=== PATIENT | male | born 1985 | race Two or more races ===

== ENCOUNTER 2024-10-16 20:47 | Emergency (ER) | payer BC, OTHER ==
[~2024-10-16] VITALS: Ht 180.3 cm; Wt 93.1 kg
[2024-10-16 20:53] VITALS: TEMP 98
[2024-10-16] MEDS: methylPREDNISolone SOD SUCC 125 MG/2 ML VL IV ONE (21:07)
[2024-10-16] MEDS: diphenhdrAMINE HCL 50 MG/1 ML VL IV ONE (21:07)
[2024-10-16] MEDS: FAMOTIDINE (10MG/ML) 2ML VL IV ONE (21:07)
[2024-10-16 21:15] VITALS: PULSE 78; RESP 25; O2SAT 97
--- NOTE | 2024-10-16 21:25 | ED.PDOC ---
HPI Allergic reaction HPI Comments 39 y/o M, presents to the ED for CC of allergic reaction. Patient states, that he was at the gym when he began to experience hives and redness. Patient relays, he began to experience an allergic reaction 20 minutes [employer] with symptoms of hyperventilation, generalized body hives, and itchiness. Upon arrival to ED, kareem aguero appeared in significant distressed and visually diaphoretic; patient had syncopal episode as a result. No other symptoms or modifying factors present at this time. Chief Complaint: Allergic Reaction Time Seen by MD: 21:10 Primary Care Provider: elisha bowman Reviewed Notes: Nurses Notes, Medications, Allergies Allergies: Coded Allergies: NO KNOWN ALLERGIES (Unverified , 10/16/24) Information Source: Patient Mode of Arrival: Ambulatory Severity: Moderate Rash: Moderate SOB: Moderate Difficulty swallowing: None Timing: Minutes Duration: Since onset Prehospital treatment: None Exposed to: Unknown Developed: Rash, Shortness of Breath History of: None Modyifying Factors: None Associated Sign and Symptoms: None Past Medical History PAST MEDICAL HISTORY: Denies Surgical History: Denies all surgeries Family History Family History: Unknown Social History Smoker: Non-Smoker Alcohol: Denies ETOH Use Drugs: Denies Drug Use Lives In: Home Constitutional: denies: chills, diaphoresis, fatigue, fever, malaise, sweats, weakness, others EENTM: denies: blurred vision, double vision, ear bleeding, ear discharge, ear drainage, ear pain, ear ringing, eye pain, eye redness, hearing loss, mouth pain, mouth swelling, nasal discharge, nose bleeding, nose congestion, nose pain, photophobia, tearing, throat pain, throat swelling, voice changes, others Respiratory: denies: cough, hemoptysis, orthopnea, SOB at rest, shortness of breath, SOB with excertion, stridor, wheezing, others Cardiovascular: denies: chest pain, dizzy spells, diaphoresis, Dyspnea on exertion, edema, irregular heart beat, left arm pain, lightheadedness, palpitations, PND, syncope, others Gastrointestinal: denies: abdomen distended, abdominal pain, blood streaked bowels, constipated, diarrhea, dysphagia, difficulty swallowing, hematemesis, melena, nausea, poor appetite, poor fluid intake, rectal bleeding, rectal pain, vomiting, others Genitourinary: denies: burning, dysuria, flank pain, frequency, hematuria, incontinence, penile discharge, penile sore, pain, testicle pain, testicle swelling, urgency, others Neurological: denies: dizziness, fainting, headache, left sided numbness, left sided weakness, numbness, paresthesia, pre-existing deficit, right sided numbness, right sided weakness, seizure, speech problems, tingling, tremors, weakness, others Musculoskeletal: denies: back pain, gout, joint pain, joint swelling, muscle pain, muscle stiffness, neck pain, others Integumetry: reports: change in color, rash, others (hives); denies: bruises, change in hair/nails, dryness, laceration, lesions, lumps, wounds Allergic/Immunocompromised: denies: Difficulty Healing, Frequent Infections, Hives, Itching, others Hematologic/Lymphatic: denies: anemia, blood clots, easy bleeding, easy bruising, swollen glands, others Endocrine: reports: excessive sweating; denies: excessive hunger, excessive thirst, excessive urination, flushing, intolerance to cold, intolerance to heat, unexplained weight gain, unexplained weight loss, others Psychiatric: denies: anxiety, bipolar disorder, depression, hopeless, panic disorder, schizophrenia, sleepless, suicidal, others All Other Systems: Reviewed and Negative Physical Exam General Appearance: No Apparent Distress, Normal HEENT: Normal ENT Inspection, Pharynx Normal, TMs Normal Neck: Full Range of Motion, Non-Tender, Normal, Normal Inspection Respiratory: Chest Non-Tender, Lungs Clear, No Accessory Muscle Use, No Respiratory Distress, Normal Breath Sounds Cardiovascular: No Edema, No JVD, No Murmur, No Gallop, Normal Peripheral Pulses, Regular Rate/Rhythm Breast Exam: Deferred Gastrointestinal: No Organomegaly, Non Tender, No Pulsatile Mass, Normal Bowel Sounds, Soft Genitalia: Deferred Pelvic: Deferred Rectal: Deferred Extremities: No calf tenderness, Normal capillary refill, Normal inspection, Normal range of motion, Non-tender, No pedal edema Musculoskeletal : Apperance: Normal 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 Was a procedure done?: No Differential diagnosis (all) Differential Diagnosis: Anaphylaxis, Bronchospasm, Drug Reaction, Shock X-Ray, Labs, Meds, VS Vital Signs Date Time Temp Pulse Resp B/P (MAP) Pulse Ox O2 Delivery O2 Flow Rate FiO2 10/16/24 22:00 78 16 135/90 (105) 97 10/16/24 21:15 78 25 97 Nasal Cannula* 4 36 10/16/24 21:15 78 25 97 Nasal Cannula* 4 36 10/16/24 21:14 78 25 146/92 (110) 97 10/16/24 21:14 78 25 146/92 (110) 97 10/16/24 21:07 73 22 126/90 (102) 94 10/16/24 20:53 20 96 Room Air* 0 21 10/16/24 20:53 98.0 120 20 126/90 (102) 96 98.0 Lab Test 10/16/24 21:19 Range/Units POC Glucose 157 H 70-106 mg/dl Current Medications Medications (Trade) Dose Ordered Sig/José Miguel Route Start Time Stop Time Status Last Admin Diphenhydramine HCl (Benadryl Injection) 50 mg ONCE ONCE IV 10/16/24 21:00 10/16/24 21:01 DC 10/16/24 21:07 Famotidine (Pepcid Injection) 20 mg ONCE ONCE IV 10/16/24 21:00 10/16/24 21:01 DC 10/16/24 21:07 Methylprednisolone Sodium Succinate (Solu Medrol) 125 mg ONCE ONCE IV 10/16/24 21:00 10/16/24 21:01 DC 10/16/24 21:07 X-Ray, Labs, Meds, VS Comment Imaging: X-rays and CT scans were reviewed and interpreted by this provider, imaging shows no fractures and no pathological disease. Pending radiology review. Laboratory: Labs reviewed and interpreted by this provider. No significant abnormalities noted. Patient has prior medical visits reviewed. Med reconciliation performed Vital signs reviewed Time of 1ST Reevaluation: 21:40 Reevaluation 1ST: Improved (Significant improvement after medications. Patient states feeling much better.) Patient Education/Counseling: Diagnosis, Treatment, Need For Follow Up (Follow up in the emergency department in the next 24-48 hours if symptoms worsen.) Family Education/Counseling: No Family Present Departure 1 Departure Time of Disposition: 23:51 Impression: Primary Impression: Anxiety Additional Impression: Tremor Disposition: HOME / SELF CARE / HOMELESS Condition: Fair e-Prescriptions Hydroxyzine Hcl (Hydroxyzine Hcl) 25 Mg Tab 1 TAB PO TID PRN, #30 TAB Prov: SONIA GUERRA 10/16/24 Discharged With: Self Critical Care Note Critical Care Time?: No Stability Stability form required: No Heart Score Heart Score: Heart Score Response (Comments) Value History N/A 0 EKG N/A 0 Age N/A 0 Risk Factors N/A 0 Troponin N/A 0 Total 0 I personally scribed for SONIA GUERRA ([email or web address]) on 10/16/24 at 21:25. Electronically submitted by Elaine Rao ([email or web address]). SONIA GUERRA Oct 16, 2024 21:25
[2024-10-16 22:00] VITALS: BP 135/90; PULSE 78; RESP 16; O2SAT 97
[2024-10-16] MEDS ORDERED: HYDR-3682 PO (23:52)
== END 2024-10-17 00:17 | disposition home or self-care (01) ==
LOC: ER 20:47
DX: F41.9 Anxiety disorder, unspecified (principal); R25.1 Tremor, unspecified; L50.9 Urticaria, unspecified; T78.40XA Allergy, unspecified, initial encounter; X58.XXXA Exposure to other specified factors, initial encounter
CPT/HCPCS: 82947; 96374; 96375; 99284; J1200; J2919; J3490; 82962